=== PATIENT | female | born 1975 | race Caucasian/White ===

== ENCOUNTER 2017-06-06 08:54 | Emergency (ER) | payer OTHER ==
[2017-06-06 09:11] VITALS: BP 141/84; PULSE 94; RESP 20; TEMP 97.4; O2SAT 98
--- NOTE | 2017-06-06 09:35 | C.PDOC ---
History Of Present Illness 42 yr old female with PMHx of asthma, never admitted, presents to the ER with complaints of 4 day history of cough, nasal congestion and chest heaviness. Patient reports she has a nebulizer at home but no albuterol. Patient denies fever, chills, SOB, sore throat, nausea, vomiting, abdominal pain or headache. Time Seen by Provider: 06/06/17 09:26 Chief Complaint (Nursing): Chest Pain History Per: Patient History/Exam Limitations: no limitations Onset/Duration Of Symptoms: Days (4) Current Symptoms Are (Timing): Still Present Past Medical History Reviewed: Historical Data, Nursing Documentation, Vital Signs Vital Signs: Last Vital Signs Temp 97.4 F L 06/06/17 09:07 Pulse 94 H 06/06/17 09:07 Resp 20 06/06/17 09:07 BP 141/84 06/06/17 09:07 Pulse Ox 98 06/06/17 10:31 - Medical History PMH: Asthma Family History: States: No Known Family Hx - Social History Hx Tobacco Use: No Hx Alcohol Use: No Hx Substance Use: No - Immunization History Hx Tetanus Toxoid Vaccination: No Hx Influenza Vaccination: No Hx Pneumococcal Vaccination: No Review Of Systems Except As Marked, All Systems Reviewed And Found Negative. Constitutional: Negative for: Fever, Chills ENT: Positive for: Nose Congestion Cardiovascular: Positive for: Other ((+) Chest heaviness) Respiratory: Positive for: Cough Gastrointestinal: Negative for: Nausea, Vomiting, Abdominal Pain Neurological: Negative for: Headache Physical Exam - Physical Exam Appears: Non-toxic, No Acute Distress Skin: Warm, Dry, No Rash Head: Atraumatic, Normacephalic Eye(s): bilateral: PERRL, EOMI, Other (Watery ) Ear(s): Bilateral: Normal Oral Mucosa: Moist Throat: Erythema (Mild) Neck: Normal, Normal ROM, Supple Chest: Symmetrical, No Tenderness Cardiovascular: Rhythm Regular, No Murmur Respiratory: Normal Breath Sounds, No Rales, No Rhonchi, No Stridor, No Wheezing Extremity: Normal ROM, No Swelling Neurological/Psych: Oriented x3, Normal Speech, Normal Motor ED Course And Treatment O2 Sat by Pulse Oximetry: 98 (RA) Pulse Ox Interpretation: Normal Medical Decision Making Medical Decision Making: PLAN: * EKG * Albuterol IH * Claritin PO * Prednisone PO Patient feeling better. Will d/c. Disposition Counseled Patient/Family Regarding: Diagnosis, Need For Followup, Rx Given - Disposition Referrals: [facility] [Outside] Disposition: HOME/ ROUTINE Disposition Time: 10:46 Condition: STABLE Prescriptions: Albuterol 0.083% [Albuterol 0.083% Inhal Dilcia (2.5 mg/3 ml) UD] 2.5 mg IH TID # 24 neb Loratadine [Claritin] 10 mg PO HS #6 tab Oseltamivir [Tamiflu] 75 mg PO DAILY #5 cap Instructions: Viral Syndrome (ED) Forms: Gen Discharge Inst Sammarinese, [facility] (Sammarinese), Work Excuse - POA Present On Arrival: None - Clinical Impression Clinical Impression: Influenza-like illness - Scribe Statement The provider has reviewed the documentation as recorded by the Ricky Garcia Provider Attestation: All medical record entries made by the Pramodibe were at my direction and personally dictated by me. I have reviewed the chart and agree that the record accurately reflects my personal performance of the history, physical exam, medical decision making, and the department course for this patient. I have also personally directed, reviewed, and agree with the discharge instructions and disposition.
[2017-06-06] MEDS: Albuterol-Ipratrop 3 mg / 0.5 (3 ml) UD IH SCH ×3 (10:00→10:31)
[2017-06-06] MEDS ORDERED: Albuterol-Ipratrop 3 mg / 0.5 (3 ml) UD ONE (10:01)
--- NOTE | 2017-06-08 13:13 | CARD ---
APPROVED REPORT EKG Measurement Heart [id number] <Conclusion> Normal sinus rhythm with sinus arrhythmia Normal ECG
== END 2017-06-06 11:04 | disposition home or self-care (01) ==
LOC: C.ER 08:54
DX: J11.1 Influenza due to unidentified influenza virus with other respiratory manifestations (principal)

== ENCOUNTER 2017-06-14 22:33 | Emergency (ER) | payer OTHER ==
[2017-06-14 22:46] VITALS: TEMP 97.6; O2SAT 98
--- NOTE | 2017-06-14 22:51 | C.PDOC ---
History Of Present Illness pt c/o wheezing. ran out of her albuterol. Speaking in complete sentences. No f/ c/n/v. Time Seen by Provider: 06/14/17 22:50 Chief Complaint (Nursing): Cough, Cold, Congestion History Per: Patient History/Exam Limitations: no limitations Onset/Duration Of Symptoms: Days Current Symptoms Are (Timing): Still Present Associated Symptoms: Cough Preciptating Factors: Ran Out Of Meds Severity: Mild Pain Scale Rating Of: 3 Recent travel outside of the [place]: No Additional History Per: Family - Asthma History Medication Use: Daily Rescue Medications: See Home Medication List Control Medications: See Home Medication List Past Medical History Reviewed: Historical Data, Nursing Documentation, Vital Signs Vital Signs: Last Vital Signs Temp 97.6 F 06/14/17 22:38 Pulse 88 06/14/17 22:38 Resp 18 06/14/17 22:38 BP 116/76 06/14/17 22:38 Pulse Ox 98 06/14/17 22:59 - Medical History PMH: Asthma Family History: States: No Known Family Hx - Social History Hx Tobacco Use: No Hx Alcohol Use: No Hx Substance Use: No - Immunization History Hx Tetanus Toxoid Vaccination: No Hx Influenza Vaccination: No Hx Pneumococcal Vaccination: No Review Of Systems Constitutional: Negative for: Fever, Chills Eyes: Negative for: Redness ENT: Negative for: Throat Pain Cardiovascular: Negative for: Chest Pain Respiratory: Positive for: Shortness of Breath, Wheezing Gastrointestinal: Negative for: Nausea, Vomiting Musculoskeletal: Negative for: Back Pain Skin: Negative for: Rash Neurological: Negative for: Weakness Psych: Negative for: Anxiety Physical Exam - Physical Exam Appears: Non-toxic, No Acute Distress Skin: Warm, Dry Head: Normacephalic Eye(s): bilateral: Normal Inspection Nose: Normal Oral Mucosa: Moist Neck: Trachea Midline, Supple Chest: Symmetrical Cardiovascular: Rhythm Regular Respiratory: No Rales, No Rhonchi, Wheezing (few) Gastrointestinal/Abdominal: Soft, No Tenderness, No Distention Back: Normal Inspection Extremity: Normal ROM Extremity: Bilateral: Atraumatic Neurological/Psych: Normal Speech, Normal Cognition Gait: Steady ED Course And Treatment O2 Sat by Pulse Oximetry: 98 Pulse Ox Interpretation: Normal Reevaluation Time: 00:23 Reassessment Condition: Improved Disposition Counseled Patient/Family Regarding: Studies Performed, Diagnosis, Need For Followup, Rx Given - Disposition Referrals: Francoise Berrios MD [Primary Care Provider] - Disposition: HOME/ ROUTINE Disposition Time: 22:51 Condition: FAIR Prescriptions: Albuterol/Ipratropium [Duoneb 3 MG/3 Ml-0.5 MG/3 Ml 3 Ml] 3 ml IH QID PRN #50 neb PRN Reason: Wheezing predniSONE [predniSONE Tab] 20 mg PO DAILY #5 tab Instructions: Asthma (DC) Forms: [employer] (Malay) Print Language: BELARUSIAN - Clinical Impression Clinical Impression: Asthma exacerbation
[2017-06-15] MEDS ORDERED: Albuterol-Ipratrop 3 mg / 0.5 (3 ml) UD ONE ×2 (00:17)
[2017-06-15] MEDS: Albuterol-Ipratrop 3 mg / 0.5 (3 ml) UD IH SCH ×2 (00:19→00:20)
[2017-06-15 00:45] VITALS: BP 103/66; PULSE 86; RESP 20
== END 2017-06-15 00:49 | disposition home or self-care (01) ==
LOC: SUPCPDRO 22:33 → C.ER 22:33
DX: J45.901 Unspecified asthma with (acute) exacerbation (principal)

== ENCOUNTER 2017-10-21 16:00 | Emergency (ER) | payer OTHER ==
[2017-10-21] MEDS: Albuterol-Ipratrop 3 mg / 0.5 (3 ml) UD IH SCH ×2 (16:15→16:30)
[2017-10-21] MEDS ORDERED: Albuterol-Ipratrop 3 mg / 0.5 (3 ml) UD ONE (16:32)
--- NOTE | 2017-10-21 17:18 | C.PDOC ---
History Of Present Illness 42 year old female with a past medical history of asthma presents to the emergency department with complaints of cough for 2 weeks, worsening since yesterday. Cough is productive of yellow sputum. She also felt short of breath last night. No fever or chills. Patient also reports using her inhaler more often, with temporary improvement. Time Seen by Provider: 10/21/17 16:11 Chief Complaint (Nursing): Shortness Of Breath History Per: Patient History/Exam Limitations: no limitations Onset/Duration Of Symptoms: Days (x 2 weeks) Current Symptoms Are (Timing): Worse Past Medical History Reviewed: Historical Data, Nursing Documentation, Vital Signs Vital Signs: Last Vital Signs Temp 97.5 F L 10/21/17 16:05 Pulse 68 10/21/17 16:05 Resp 19 10/21/17 16:05 BP 112/76 10/21/17 16:05 Pulse Ox 99 10/21/17 17:19 - Medical History PMH: Asthma Surgical History: Family History: States: Unknown Family Hx - Social History Hx Tobacco Use: No Hx Alcohol Use: No Hx Substance Use: No - Immunization History Hx Tetanus Toxoid Vaccination: No Hx Influenza Vaccination: No Hx Pneumococcal Vaccination: No Review Of Systems Constitutional: Negative for: Fever, Chills Cardiovascular: Negative for: Chest Pain Respiratory: Positive for: Cough, Shortness of Breath, Sputum Physical Exam - Physical Exam Appears: Well, Non-toxic, No Acute Distress Skin: Warm, Dry, No Rash Head: Atraumatic, Normacephalic Eye(s): bilateral: Normal Inspection Ear(s): Bilateral: Normal Nose: Normal, No Discharge Oral Mucosa: Moist Throat: Normal, No Erythema, No Exudate Neck: Normal ROM Chest: Symmetrical Cardiovascular: Rhythm Regular, No Murmur Respiratory: No Rales, No Rhonchi, Wheezing (Mild expiratory wheezing) Neurological/Psych: Oriented x3, Normal Speech ED Course And Treatment O2 Sat by Pulse Oximetry: 99 (RA) Pulse Ox Interpretation: Normal Medical Decision Making Medical Decision Making: Impression: Wheezing, SOB Time: 16:15 Plan: --Duoneb treatment --Zithromax PO --Prednisone PO --Peak Flow pre/post treatment --Reassessment 17:15 On reevaluation, patient states she feels better. Lungs are clear to auscultation. Patient remains afebrile, AAOx3, and is stable for discharge home. Disposition Counseled Patient/Family Regarding: Diagnosis, Need For Followup, Rx Given - Disposition Referrals: [facility] [Outside] [facility] [Outside] Disposition: HOME/ ROUTINE Disposition Time: 17:16 Condition: IMPROVED Additional Instructions: Vaya a masters mdico o la clnica en 2-5 christy sin falta, para mas evaluacin. [place] los medicamentos subha indicado. Volver a la kendra de emergencia en cualquier momento si los sntomas persisten o empeoran. Prescriptions: Albuterol HFA [Ventolin HFA 90 mcg/actuation (8 g)] 1 puff IH Q4 #1 puff Azithromycin [Zithromax] 250 mg PO DAILY #4 tab Benzonatate [Tessalon Perles] 100 mg PO TID #30 sgl Instructions: Acute Bronchitis Forms: [employer] (Kosovan) Print Language: MALAGASY - POA Present On Arrival: None - Clinical Impression Clinical Impression: Asthmatic bronchitis - PA / [employer] / Resident Statement MD/DO has reviewed & agrees with the documentation as recorded. - Scribe Statement The provider has reviewed the documentation as recorded by the Scribe (Ro Willis) All medical record entries made by the Scribe were at my direction and personally dictated by me. I have reviewed the chart and agree that the record accurately reflects my personal performance of the history, physical exam, medical decision making, and the department course for this patient. I have also personally directed, reviewed, and agree with the discharge instructions and disposition.
[2017-10-21 17:37] VITALS: BP 106/69; PULSE 89; RESP 20; TEMP 97.4
[2017-10-21 17:38] VITALS: O2SAT 99
== END 2017-10-21 17:37 | disposition home or self-care (01) ==
LOC: C.ER 16:00
DX: J45.909 Unspecified asthma, uncomplicated (principal)